=== PATIENT | female | born 1970 | race African-American/Black ===

== ENCOUNTER → 2025-05-09 16:02 | Outpatient (CLI) | payer OTHER, SELFPAY ==
--- NOTE | 2025-05-09 16:03 | DI.ECHO.S_ITS ---
[facility] +---------+ [facility] : : [address] : : [place] : : [id number] : : Phone: [phone] Echocardiogram Report + + :Name: SHERLY MONZON Study Date: 05/09/2025 Height: 66 in : :Hospital ReadingLocation: Weight: 220 lb : : Gender: Female BSA: 2.1 m2 : :: 1970 Age: 54 yrs BP: 145/91 mmHg: :Reason For Study: HYPERTENSION : :Ordering Physician: LARISA, : :PAUL Performed By: Manan Levi : :Referring: PAUL PERES : + + Interpretation Summary The left ventricular cavity is small. Left ventricular ejection fraction is estimated to be 70 +/- 5%. No significant LV outflow tract obstruction The left ventricle is borderline hyperdynamic. The right ventricle is normal in size and function. All the valves were not well-visualized however no gross significant abnormality seen. The IVC is dilated (diameter is greater than 2.1 cm) yet it collapses greater than 50% with a sniff. This suggests a right atrial pressure of 8 mm Hg. Procedure: A two-dimensional transthoracic echocardiogram with color flow and Doppler was performed. The study quality was technically difficult. There is no prior echocardiogram noted for this patient. The patient was in normal sinus rhythm during the exam. Left Ventricle: There is normal left ventricular wall thickness. The left ventricular cavity is small. There is no ventricular septal defect visualized. Left ventricular ejection fraction is estimated to be 70 +/- 5%. The left ventricle is borderline hyperdynamic. There are no focal wall motion abnormalities. Diastolic parameters suggest probable normal left ventricular diastolic function and normal filling pressures. Right Ventricle: The right ventricle is normal in size and function. Atria: The left atrial size is normal. Right atrial size is normal. There is no Doppler evidence for an interatrial shunt. Mitral Valve: The mitral valve is grossly normal. There is mild mitral annular calcification. There is trace mitral regurgitation. Aortic Valve: The aortic valve is not well visualized. The aortic valve opens well. There is no aortic valve stenosis. No aortic regurgitation is present. Tricuspid Valve: The tricuspid valve is not well visualized, but is grossly normal. No tricuspid regurgitation. Pulmonary artery pressures cannot be estimated because of the lack of a measurable TR jet velocity. Pulmonic Valve: The pulmonic valve is not well visualized. There is no pulmonic valvular regurgitation. Great Vessels: The aortic root is normal size. The dimensions of the ascending aorta are normal. The pulmonary is not well visualized. The IVC is dilated (diameter is greater than 2.1 cm) yet it collapses greater than 50% with a sniff. This suggests a right atrial pressure of 8 mm Hg. Pericardium/ Pleura There is no pericardial effusion. There is an anterior echo-free space consistent with a fat pad. There is no pleural effusion. MMode/2D Measurements & Calculations LVIDd: 4.0 cm LVOT diam: 1.9 cm LVIDs: 2.3 cm Ao root diam: 3.1 cm FS: 43.3 % asc Aorta Diam: 2.7 cm EPSS: 0.43 cm IVSd: 0.97 cm LVPWd: 0.94 cm LV bello. diameter/BSA (cm/m^2): 1.9 LV sys. diameter/BSA (cm/m^2): 1.1 LA A2 area: 20.7 cm2 RA long axis: 5.1 cm LA A4 area: 19.1 cm2 RA area: 14.1 cm2 LA length (vol): 5.5 cm RA vol: 33.2 ml LA vol: 61.4 ml RA : 16.0 ml/m2 LA vol index: 29.5 ml/m2 IVC diam: 2.2 cm RVD1 (basal): 3.2 cm RVD2 (mid): 2.6 cm TAPSE: 3.3 cm Doppler Measurements & Calculations Ao V2 max: 155.3 cm/sec LVOT Max Isidoro: 112.8 cm/sec Ao V2 mean: 99.9 cm/sec LV V1 max P.1 mmHg Ao max P.7 mmHg LV V1 VTI: 26.3 cm Ao mean P.5 mmHg BATOOL(I,D): 2.4 cm2 Ao V2 VTI: 29.3 cm BATOOL(V,D): 2.0 cm2 sev ratio: 0.90 BATOOL indexed to BSA (cm^2/m^2): 1.2 MV E max isidoro: 96.5 cm/sec PA V2 max: 115.1 cm/sec MV A max isidoro: 40.9 cm/sec PA V2 mean: 80.0 cm/sec MV E/A: 2.4 PA mean P.8 mmHg Med Peak E' Isidoro: 9.7 cm/sec PA pr(Accel): 41.3 mmHg E/E' med: 9.9 Lat Peak E' Isidoro: 12.9 cm/sec E/E' lat: 7.5 E/e' average: 8.7 MV dec time: 0.17 sec SV(LVOT): 70.9 ml Reading Physician:04:30 PM
== END ==
PROVIDERS: PCP Student in an Organized Health Care Education/Training Program; Referring Provider Student in an Organized Health Care Education/Training Program; Visit Provider Student in an Organized Health Care Education/Training Program
DX: I34.81 Nonrheumatic mitral (valve) annulus calcification (principal); I10 Essential (primary) hypertension
CPT/HCPCS: 93306

== ENCOUNTER → 2025-06-17 08:23 | Outpatient (CLI) | payer OTHER, SELFPAY ==
[2025-06-17 09:56] LABS: Add Manual Diff / Slide Review NO; Hematocrit 35.4 % (36-46); Hemoglobin 11.7 g/dL (12.0-16.0); Lymphocytes Absolute Auto 1900 /uL (1100-4500); Mean Corpuscular HGB Conc 33.0 % (30-36); Mean Corpuscular Hemoglobin 29.0 PG (26-34); Mean Corpuscular Volume 87.6 fL (80-100); Platelet Count 353 X10^3/uL (150-400)
[2025-06-17 10:26] LABS: Alanine Aminotransferase 20 IU/L (<35); Albumin 4.3 g/dL (3.5-5.0); Albumin Globulin Ratio 1.3 (1.0-2.8); Alkaline Phosphatase 128 U/L (38-126); Blood Urea Nitrogen 15 mg/dL (7-17); Calcium 9.5 mg/dL (8.4-10.2); Carbon Dioxide 25 mmol/L (22-32); Chloride 102 mmol/L (98-107); Cholesterol 124 mg/dL (140-199); Estimated Glomerular Filt Rate > 60 mL/min (>60); Globulin 3.4 g/dL (1.7-4.1); Glucose 180 mg/dL (70-99); HDL Cholesterol 49 mg/dL (40-60); HEMOLYSIS < 15 (0-50); Potassium 3.8 mmol/L (3.4-5.1); Sodium 136 mmol/L (137-145); Total Protein 7.7 g/dL (6.3-8.2); Triglycerides 66 mg/dL (35-150)
[2025-06-17 10:42] LABS: Free T3, Triiodothyronine Free 3.25 pg/mL (2.77-5.27); Free T4, Direct Thyroxine 0.82 ng/dL (0.78-2.19)
[2025-06-17 10:56] LABS: Thyroid Stimulating Hormone 0.880 uIU/mL (0.47-4.68)
[2025-06-17 13:47] LABS: Hemoglobin A1C% w Est Avg Glu 8.0 % (4.0-6.0)
[2025-06-17 15:50] LABS: Microalbumi Creatinin Ratio Ur 28.0 ug/mg CR (<30)
== END ==
PROVIDERS: PCP Student in an Organized Health Care Education/Training Program; Referring Provider Student in an Organized Health Care Education/Training Program; Visit Provider Student in an Organized Health Care Education/Training Program
DX: I10 Essential (primary) hypertension (principal); R63.5 Abnormal weight gain; E78.00 Pure hypercholesterolemia, unspecified
CPT/HCPCS: 36415; 80053; 80061; 82043; 82570; 83036; 84439; 84443; 84481; 85025

== ENCOUNTER → 2025-07-08 08:58 | Outpatient (CLI) | payer OTHER, SELFPAY ==
--- NOTE | 2025-07-08 09:00 | DI.MG.S_ITS ---
MM screening mammo BI: 07/08/2025. BI-RADS: 0 CLINICAL: 54-year old female for bilateral screening mammogram. Tyrer-Cuzick lifetime risk of 12.5%. No personal or first-degree family history of breast cancer. PRIOR EXAMS: 10/24/2021. MAMMOGRAPHY TECHNIQUE: 2D and 3D (tomosynthesis) digital mammographic views obtained, with additional images as needed for full coverage. Current study was also evaluated with a Computer Aided Detection (CAD) system. DENSITY B. There are scattered areas of fibroglandular density. MAMMOGRAPHY FINDINGS Right: Lower Inner at 4:00, Middle depth: Focal asymmetry needing additional imaging evaluation. Left: No suspicious mass, asymmetry, microcalcification, or other abnormality seen. IMPRESSION: Right (Asymmetry): Lower Inner at 4:00, Middle depth * Incomplete - focal asymmetry needing additional imaging evaluation. Left * No evidence of malignancy. RECOMMENDATIONS Right: Lower Inner at 4:00, Middle depth * Further evaluation with diagnostic mammography and diagnostic ultrasound. Ultrasound to be performed only if needed. OVERALL ASSESSMENT CATEGORY BI-RADS-0: Incomplete - Need Additional Imaging Evaluation. ELECTRONICALLY SIGNED: Levar Silverman M.D. on 07/10/2025 at 09:24:58 AM PT Interpreting Station ID: [id number]
== END ==
LOC: MAMMO 08:59
PROVIDERS: PCP Student in an Organized Health Care Education/Training Program; Referring Provider Student in an Organized Health Care Education/Training Program; Visit Provider Student in an Organized Health Care Education/Training Program
DX: Z12.31 Encounter for screening mammogram for malignant neoplasm of breast (principal)
CPT/HCPCS: 77063; 77067

== ENCOUNTER → 2025-07-25 15:48 | Outpatient (CLI) | payer OTHER, SELFPAY ==
--- NOTE | 2025-08-24 16:40 | DIAB.MNT ---
Initial Diabetes Medical Nutrition Therapy Assessment Name: Zohra Barboza Date: 07/25/25 Time: 415-5p Dx: Type II Diabetes Provider: Ted Preferred Learning Style: Watching Zohra presents for initial DM visit. Endorses Fh of T1 and T2 with both parents and maternal grandmother. Newly diagnosed with T2Dm with hgA1c 8%. UTD on eye appt Not checking feet. Taking Metformin and low dose Semaglutide x one week. Endorses efforts to lose wt. Reports wt gain over the last few years. Last job was more active, less so now. 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 Excessive urination for years reported. Blurry vision Reports insomnia, can only sleep 2-3 hours at a time. Little nausea. Some constipation x 2 days, using Miralax. Diet Recall: 430a: oat pkt low sugar and turkey sausage OR protein waffle with jam sn: usually nothing, sometimes low CHO yogurt 1230p: salad with chx and 1 fruit 8p: preprepped meals 5 days per week OR protein with veggie and small amt of CHO (30g CHO) water 2L coffee with sf creamer Anthropometrics: Ht: 64 Wt: 232# 06/2025 Weight history: Physical Activity: Works in [employer] and sits most of the day. Does some home exercises on weekends. Self-Monitoring Blood Glucose: None Date Pre Post Pre Post Pre Post HS Diabetes Medications: 500mg Metformin 0.25 mg Semaglutide Pertinent Labs: HgA1c: 8% 06/2025 Past Medical History: (Last Updated 04/20/25 @ 15:54 by Archana Barajas MA) Abnormal Pap smear of cervix Nutrition Rx: Carbohydrates: Meal:30-45g Snack:15-30g Nutrition Diagnosis: - Nutrition and Food related knowledge deficit r/t new dx T2Dm aeb hgA1c and pt report Intervention: This participant was very receptive. Provided appropriate educational handouts. Discussed the following topics: Completed intake assessment. Discussed barriers to care. Pathophysiology of T2DM HgA1c, its correlation to blood glucose numbers, and rationale for goal Plate Method, impact of macronutrients on blood sugar, meal timing, carbohydrate counting, pairing macronutrients and spreading out carbohydrates for better blood glucose management Recommended servings for carbohydrates at meals and snacks Heart health nutrition Semaglutide SE, action, and benefits and rx dosing Role of physical activity and strategies for consistency Created SMART goals for patient self-care and success. Goals: Titrate per rx for Semaglutide in 3 weeks- new Physical activity 2x per week- new Add nuts/seed to oats- new Follow-up: SAUL LANDEROS follow-up in 3-4 weeks Trang Vargas RDN, TIGRE Certified Diabetes Care and Physician Obstetrician P: [phone] Thank you for this referral
== END ==
LOC: DIET 15:48
PROVIDERS: PCP Student in an Organized Health Care Education/Training Program; Referring Provider Student in an Organized Health Care Education/Training Program
DX: E11.9 Type 2 diabetes mellitus without complications (principal); Z71.3 Dietary counseling and surveillance; Z83.3 Family history of diabetes mellitus; Z79.84 Long term (current) use of oral hypoglycemic drugs; Z79.85 Long-term (current) use of injectable non-insulin antidiabetic drugs
CPT/HCPCS: 97802